=== PATIENT | female | born 1995 | race Caucasian/White ===

== ENCOUNTER 2016-08-31 16:09 | Emergency (ER) | payer BC ==
[2016-08-31 16:56] VITALS: BP 119/70
--- NOTE | 2016-08-31 17:10 | UC ---
Ear Complaint HPI - HPI Summary HPI Summary: R earlobe swelling and redness today. Pierced ears about a month ago, recently changed earrings from initial studs, thinks it may have been overtightened while she slept. Was unable to remove her earring at home. - History of Current Complaint Chief Complaint: UCEar Stated Complaint: EAR LOBE COMPLAINT Time Seen by Provider: 08/31/16 16:47 Hx Obtained From: Patient Hx Last Menstrual Period: now ?: No Onset/Duration: Gradual Onset, Lasting Hours Severity Initially: Mild Severity Currently: Mild Aggravating Factors: FB Associated Signs/Symptoms: Positive: Swelling @ - Allergies/Home Medications Allergies/Adverse Reactions: Allergies Allergy/AdvReac Type Severity Reaction Status Date / Time No Known Allergies Allergy Verified 08/31/16 16:56 Home Medications: Home Medications NK [No Home Medications Reported] 08/31/16 [History Confirmed 08/31/16] PMH/Surg Hx/FS Hx/Imm Hx Endocrine History Of: Denies: Diabetes, Thyroid Disease Cardiovascular History Of: Denies: Cardiac Disorders, Hypertension, Pacemaker/ICD Respiratory History Of: Denies: COPD, Asthma GI/ History Of: Reports: Kidney Stones Denies: Gastroesophageal Reflux, Renal Disease Neurological History Of: Denies: CVA, Dementia, Seizures Other History Of: Negative For: Anticoagulant Therapy - Surgical History Surgical History: Yes Surgery Procedure, Year, and Place: ear tubes as child - Family History Known Family History: Positive: Diabetes - Social History Occupation: Employed Part-time Lives: With Family Alcohol Use: Occasionally Substance Use Type: Marijuana Smoking Status (MU): Light Every Day Tobacco Smoker Amount Used/How Often: 7 cig./day Household Exposure Type: Cigarettes Review of Systems Constitutional: Negative Skin: Negative Eyes: Negative ENT: Ear Ache - R earlobe Respiratory: Negative Cardiovascular: Negative Gastrointestinal: Negative Genitourinary: Negative Motor: Negative Neurovascular: Negative Musculoskeletal: Negative Neurological: Negative Psychological: Negative All Other Systems Reviewed And Are Negative: Yes Physical Exam Triage Information Reviewed: Yes Appearance: Well-Appearing, No Pain Distress, Obese Vital Signs: Initial Vital Signs Temp 97.9 F 08/31/16 16:49 Pulse 94 08/31/16 16:49 Resp 18 08/31/16 16:49 BP 119/70 08/31/16 16:49 Pulse Ox 98 08/31/16 16:49 Vital Signs Reviewed: Yes Eye Exam: Normal Eyes: Positive: Conjunctiva Clear ENT: Positive: Hearing grossly normal, Pharynx normal, TMs normal, Other: - R earlobe swollen, red, both sides of earring visible. Earring removed with rose clamps, pus and thick discharge expelled from front of earlobe. Scant blood, pt tri well. Dental Exam: Normal Neck exam: Normal Neck: Positive: Supple, Nontender, No Lymphadenopathy Respiratory Exam: Normal Respiratory: Positive: Chest non-tender, Lungs clear, Normal breath sounds, No respiratory distress, No accessory muscle use Cardiovascular Exam: Normal Cardiovascular: Positive: RRR, No Murmur Musculoskeletal Exam: Normal Neurological Exam: Normal Neurological: Positive: Alert Psychological Exam: Normal Skin Exam: Other - R earlobe inflamed Ear Complaint Course/Dx - Differential Dx/Diagnosis Provider Diagnoses: Subcutaneous FB (earring) removal from R earlobe Discharge - Discharge Plan Condition: Stable Disposition: HOME Patient Education Materials: Soft Tissue Foreign Body (ED) Additional Instructions: Keep the ear clean with soapy water 3-4 times per day. Given the large wound left by your previous earring, I do not recommend you try to put in another earring. Call or come right back if you have increasing redness, tenderness, or large painful lumps behind your ear.
== END 2016-08-31 17:21 | disposition home or self-care (01) ==
LOC: UCEAST 16:09
DX: S00.451A Superficial foreign body of right ear, initial encounter (principal); W45.8XXA Other foreign body or object entering through skin, initial encounter; Y93.9 Activity, unspecified; Y99.9 Unspecified external cause status; F12.10 Cannabis abuse, uncomplicated; F17.210 Nicotine dependence, cigarettes, uncomplicated
CPT/HCPCS: 99211; G0463

== ENCOUNTER 2018-09-16 14:26 | Emergency (ER) | payer BC ==
[2018-09-16 14:50] VITALS: BP 131/84
--- NOTE | 2018-09-16 14:53 | UC ---
[facility] HPI - HPI Summary HPI Summary: 23 y/o female presents to the urgent care c/o left lower jaw intermittent pain w/ molar cavities for the past 2 months. Pain worsen yesterday w/ chewing and this morning she woke up w/ mild swelling. Pt doesn't have a Dentist. She took Ibuprofen 600mg PO last night around 2000pm to alleviate symptoms. She has been drinking fluids, but has decrease appetite due to pain. Pt denies fever, trismus , PARK, dizziness, chills, SOB, chest pain, abdominal pain, N/V/d. - History of Current Complaint Chief Complaint: UCDentalProblem Stated Complaint: tooth pain Time Seen by Provider: 09/16/18 14:52 Hx Obtained From: Patient Hx Last Menstrual Period: BEGINNING AUGUST Onset/Duration: Gradual Onset, Lasting Weeks - 2 months, Still Present, Worse Since - 2 days Severity: Moderate Pain Intensity: 7 Pain Scale Used: 0-10 Numeric Aggravating Factor(s): Chewing Alleviating Factor(s): OTC Meds - ibuprofen 600mg PO last dose taken yesterday around 2000pm - Allergies/Home Medications Allergies/Adverse Reactions: Allergies Allergy/AdvReac Type Severity Reaction Status Date / Time bee venom protein (honey bee) Allergy Severe SWOLLEN Verified 09/16/18 14:50 PMH/Surg Hx/FS Hx/Imm Hx Previously Healthy: Yes - Pt denies PMHX Other History Of: Negative For: Anticoagulant Therapy - Surgical History Surgical History: Yes Surgery Procedure, Year, and Place: ear tubes as child - Family History Known Family History: Positive: Cardiac Disease, Hypertension, Diabetes - Social History Occupation: Employed Full-time Lives: With Family Alcohol Use: Occasionally Substance Use Type: Marijuana Smoking Status (MU): Current Every Day Smoker Type: Cigarettes Amount Used/How Often: 1/4 PPD Household Exposure Type: Cigarettes - Immunization History Most Recent Influenza Vaccination: Not UTD Review of Systems All Other Systems Reviewed And Are Negative: Yes Constitutional: Positive: Negative Skin: Positive: Negative Eyes: Positive: Negative ENT: Positive: Dental Pain - left lower jaw pain w/ mild swelling Respiratory: Positive: Negative Cardiovascular: Positive: Negative Gastrointestinal: Positive: Negative Genitourinary: Positive: Negative Motor: Positive: Negative Neurovascular: Positive: Negative Musculoskeletal: Positive: Negative Neurological: Positive: Negative Psychological: Positive: Negative Is Patient Immunocompromised?: No Physical Exam - Summary Physical Exam Summary: Vital Signs Reviewed: Yes General: Well-Appearing, Well-Nourished obese female sitting in the examining table w/o any respiratory or pain distress Eyes: Positive: Conjunctiva Clear - PERRLA, EOMI, ENT: Positive: Normal ENT inspection, Hearing grossly normal, Pharynx normal, TMs normal - B/L external ear canals clear,. Negative: Tonsillar swelling, Tonsillar exudate, Trismus Dental: Positive: Gross Decay/Caries in all upper molars and left lower molars # 18 and 19 w/ gingival swelling and erythema, tender to percussion. involves tissue surrounding theses molars, w/ positive anterior Cervical Lymphadenopathy. Neck: Positive: Supple Respiratory: Positive: Chest non-tender, Lungs clear, Normal breath sounds, No respiratory distress Cardiovascular: Positive: RRR, No Murmur, Pulses Normal, Brisk Capillary Refill Abdomen Description: Positive: Nontender, No Organomegaly, Soft. Negative: CVA Tenderness (R), CVA Tenderness (L) Bowel Sounds: Positive: Present Musculoskeletal: Positive: Strength Intact, ROM Intact, No Edema Neurological Exam: Normal Psychological Exam: Normal Skin Exam: Normal Triage Information Reviewed: Yes Vital Signs: Initial Vital Signs Temp 98 F 09/16/18 14:47 Pulse 104 09/16/18 14:47 Resp 16 09/16/18 14:47 BP 131/84 09/16/18 14:47 Pulse Ox 100 09/16/18 14:47 Dental Complaint Course/Dx - Course Course Of Treatment: 23 y/o female presents to the urgent care c/o left lower jaw intermittent pain w/ molar cavities for the past 2 months. Pain worsen yesterday w/ chewing and this morning she woke up w/ mild swelling. Pt doesn't have a Dentist. She took Ibuprofen 600mg PO last night around 2000pm to alleviate symptoms. She has been drinking fluids, but has decrease appetite due to pain. Pt denies fever, trismus , PARK, dizziness, chills, SOB, chest pain, abdominal pain, N/V/d. Hx obtained. Pt w/ Gross Decay/Caries in all upper molars and left lower molars #18 and 19 w / gingival swelling and erythema, tender to percussion. involves tissue surrounding theses molars, w/ positive anterior Cervical Lymphadenopathyon examination. Pt with dental abscess on examination. Pt given viscous Lidocaine and a Toradol IM inj at the clinic by the nurse to alleviate symptoms. Pt tolerated well medications and pain decrease. Pt Rx Clindamycin PO and Ibuprofen and Viscous Lidocaine for pain. Pt strongly advised to f/u with Dentist as soon as possible further evaluation and treatment. D/C instructions explained. Pt understood and agreed with plan of care. Left the clinic ambulating. - Differential Dx/Diagnosis Differential Diagnosis/Dx: Dental Abscess, Dental Caries, Fractured Tooth, Peridontic Disease, Peritonsillar Abcess Provider Diagnosis: Dental abscess Discharge - Sign-Out/Discharge Documenting (check all that apply): Patient Departure - D/c home All imaging exams completed and their final reports reviewed: No Studies - Discharge Plan Condition: Stable Disposition: HOME Prescriptions: Clindamycin Cap(NF) [Clindamycin Cap 300 mg Cap(NF)] 300 mg PO TID #30 cap Ibuprofen TAB* [Motrin TAB* 800 MG] 800 mg PO Q6H PRN #30 tab PRN Reason: dental pain Lidocaine 2% VISCOUS* [Xylocaine 2% Viscous*] 15 ml SWISH SPIT TID PC PRN #1 [id number] PRN Reason: dental pain Patient Education Materials: Dental Abscess (ED) Referrals: [facility] [Outside] - As Soon As Possible Additional Instructions: 1-Please take full course of antibiotic to avoid resistance. Take yogurts w/ probiotics or Culturelle to protect your GI system 2- Take Ibuprofen PO q6-8hrs prn after meals starting tomorrow since you were given a toradol IM inj today for pain. 3- F/u with your Dentist or Dental List provided as soon as possible for further treatment. 4- If symptoms do not improve or worsen please return to the urgent care or f/u with your PCP in 3 days for further evaluation and treatment - Billing Disposition and Condition Condition: STABLE Disposition: Home
[2018-09-16] MEDS ORDERED: Ketorolac INJ* 30 MG/ML 1 ML VIAL IM ONE (15:10)
[2018-09-16] MEDS ORDERED: Lidocaine 2% VISCOUS* 15 ML UDC SWISH SPIT ONE (15:11)
== END 2018-09-16 15:50 | disposition home or self-care (01) ==
LOC: UCEAST 14:26
DX: K04.7 Periapical abscess without sinus (principal); K02.9 Dental caries, unspecified; Z91.030 Bee allergy status; F17.210 Nicotine dependence, cigarettes, uncomplicated
CPT/HCPCS: 96372; 99212; G0463; J1885